=== PATIENT | male | born 1955 ===

== ENCOUNTER 2018-10-02 13:40 | Outpatient (CLI) | payer OTHER ==
[~2018-10-02 13:40] MED LIST: COZAAR50 MG; LOSARTAN; METFORMIN PO; NABUMETONE500 MG PO; NORVASC10 MG; PERCOCET 5/3251 TAB PO; SYNTHROID50 MCG PO; ZOCOR40 MG PO
== END 2018-10-02 13:45 | disposition home or self-care (01) ==
LOC: EKG 13:40
DX: I10 Essential (primary) hypertension (principal)